=== PATIENT | female | born 1935 | race Caucasian/White ===

== ENCOUNTER 2017-05-07 18:57 | Inpatient (IN) | payer OTHER ==
[~2017-05-07] VITALS: Ht 152.4 cm; Wt 70.4 kg
[~2017-05-07 18:57] MED LIST: ADULT LOW DOSE81 M1 PO; DESYREL 150 MG150 MG PO; GLUCOPHAGE500 MG PO; HUMALOG100 UNIT/2 SQ; LANTUS100 UNIT/1 SQ; LEVOTHROID50 MCG PO; LOSARTAN-HCTZ1 EAC1 PO; NIFEDIAC CC60 MG PO; PRAVACHOL40 MG PO; SIMVASTATIN
[2017-05-07] MEDS ORDERED: LOSARTAN POTASS25 MG PO (19:25)
[2017-05-07] MEDS ORDERED: LEVOTHYROXINE50 MCG PO (19:25)
[2017-05-07] MEDS ORDERED: METFORMIN HCL1000 MG PO (19:25)
[2017-05-07] MEDS ORDERED: ADALAT CC 60 MG60 MG PO (19:25)
[2017-05-07] MEDS ORDERED: LO-DOSE ASPIRIN81 M1 PO (19:26)
[2017-05-07] MEDS ORDERED: CYANOCOBALAM1000 MCG PO (19:26)
[2017-05-07] MEDS ORDERED: VITAMIN D2000 UNI1 PO (19:26)
[2017-05-07] MEDS ORDERED: JANUVIA25 M1 PO (19:26)
[2017-05-07] MEDS ORDERED: LANTUS 10100 UNITS/ SC ×2 (19:27)
[2017-05-07 19:54] LABS: HEMATOCRIT 39.9 % (36.0-46.0); MCH 30.8 PG (29.0-34.0); MCHC 34.3 G/DL (30.0-36.0); MCV 89.7 FL (83-99); MEAN PLAT.VOLUME 11.7 uM^3 (9.5-12.4); PLATELET COUNT 246 K/uL (156-360); RBC DIS.WIDTH-CV 12.6 % (11.8-14.6); RBC DIS.WIDTH-SD 41.2 % (39-53); RED BLOOD COUNT 4.45 M/uL (3.80-5.20); WHITE BLOOD COUNT 10.6 K/uL (4.1-10.2)
[2017-05-07 19:55] LABS: CARBON DIOXIDE (BICARBONATE) 26.8 MEQ/L (20-31)
[2017-05-07 20:04] LABS: CHLORIDE 98 mEq/L (99-109); POTASSIUM 3.6 mEq/L (3.7-5.4); SODIUM 135 mEq/L (136-147)
[2017-05-07 20:07] LABS: ANION GAP 16 MEQ/L (2-14)
[2017-05-07 20:09] LABS: GFR ESTIMATE (CALCULATED) 42 mL/min/
[2017-05-07 20:10] LABS: UREA NITROGEN (BUN) 21 mg/dL (9-23)
[2017-05-07 20:24] LABS: GLUCOSE 526 mg/dL (70-99)
[2017-05-07] MEDS ORDERED: GLUCOPHAGE1000 MG PO (22:41)
[2017-05-07 22:42] LABS: POINT-OF-CARE METER ID UU13113702
[2017-05-07] MEDS ORDERED: PRAVACHOL40 MG PO (22:43)
[2017-05-07] MEDS ORDERED: COZAAR25 MG PO (22:45)
[2017-05-07] MEDS ORDERED: SYNTHROID50 MCG PO (22:45)
[2017-05-07] MEDS ORDERED: PROCARDIA XL60 MG PO (22:45)
[2017-05-08] VITALS (7 sets, daily range): BP systolic 116–180; BP diastolic 52–88
[2017-05-08 00:26] LABS: ADD MIUA? NO; BILIRUBIN NEGATIVE; BLOOD NEGATIVE; COLOR STRAW ((YELLOW)); GLUCOSE (STRIP) >=500; KETONES NEGATIVE; LEUKOCYTES NEGATIVE; NITRITE NEGATIVE; PROTEIN (STRIP) NEGATIVE; SPECIFIC GRAVITY 1.023 (1.000-1.030); UCUL ADDED? NO; UROBILINOGEN 0.2 MG/DL (0.2-1.0)
[2017-05-08 01:45] LABS: SODIUM 141 mEq/L (136-147)
[2017-05-08 01:48] LABS: ANION GAP 11 MEQ/L (2-14)
[2017-05-08 01:51] LABS: UREA NITROGEN (BUN) 16 mg/dL (9-23)
[2017-05-08 02:01] LABS: CHLORIDE 109 mEq/L (99-109); GFR ESTIMATE (CALCULATED) > 59 mL/min/; GLUCOSE 137 mg/dL (70-99)
[2017-05-08 07:39] LABS: Estimated Average Glucose 260 mg/dL (70-123); HEMOGLOBIN A1c (GLYCOHEMOGLOB) 10.7 % HGB (Below 5.7)
[2017-05-08 08:16] LABS: POINT-OF-CARE METER ID UU13113702
[2017-05-08 12:14] LABS: POINT-OF-CARE METER ID UU14188577
[2017-05-08 21:21] LABS: POINT-OF-CARE METER ID UU13113717
[2017-05-09] VITALS (7 sets, daily range): BP systolic 130–187; BP diastolic 62–92
[2017-05-09 06:51] LABS: HEMATOCRIT 40.8 % (36.0-46.0); MCH 30.3 PG (29.0-34.0); MCHC 33.8 G/DL (30.0-36.0); MCV 89.5 FL (83-99); MEAN PLAT.VOLUME 11.4 uM^3 (9.5-12.4); PLATELET COUNT 252 K/uL (156-360); RBC DIS.WIDTH-CV 12.7 % (11.8-14.6); RBC DIS.WIDTH-SD 41.7 % (39-53); RED BLOOD COUNT 4.56 M/uL (3.80-5.20); WHITE BLOOD COUNT 8.7 K/uL (4.1-10.2)
[2017-05-09 07:16] LABS: ALKALINE PHOSPHATASE 90 IU/L (3-129); ANION GAP 12 MEQ/L (2-14); CHLORIDE 104 MEQ/L (99-109); DIRECT BILIRUBIN 0.1 mg/dL (0.0-0.3); GFR ESTIMATE (CALCULATED) > 59 mL/min/; GLUCOSE 107 mg/dL (70-99); SAMPLE HEMOLYSIS CHECK 0; SAMPLE ICTERIC CHECK 0; SAMPLE LIPEMIA CHECK 0; SODIUM 139 MEQ/L (136-147); TOTAL BILIRUBIN 0.9 MG/DL (0.0-1.0); UREA NITROGEN (BUN) 11 mg/dL (9-23)
[2017-05-09 07:20] LABS: POTASSIUM 3.8 MEQ/L (3.7-5.4)
[2017-05-09 08:14] LABS: POINT-OF-CARE METER ID UU13113717
[2017-05-09 08:25] LABS: HDL CHOLESTEROL 30 MG/DL (Desirable>=50); NON-HDL CHOLESTEROL 184 mg/dL (Desirable<160); TOTAL CHOLESTEROL 214 mg/dL (Desirable<200); TRIGLYCERIDES 449 MG/DL (Normal: <150)
[2017-05-09 10:39] LABS: DIRECT BILIRUBIN 0.2 mg/dL (0.0-0.3)
[2017-05-09 10:41] LABS: TOTAL BILIRUBIN 1.1 MG/DL (0.0-1.0)
[2017-05-09 12:37] LABS: POINT-OF-CARE METER ID UU13113717
[2017-05-09 17:16] LABS: POINT-OF-CARE METER ID UU14174225
[2017-05-09 21:00] LABS: POINT-OF-CARE METER ID UU13113717
[2017-05-10 06:37] LABS: BASOPHIL COUNT 0.1 K/uL (0-0.1); EOSINOPHIL (%) 1.5 % (0-5); EOSINOPHIL COUNT 0.1 K/uL (0-0.3); IMMATURE GRANULOCYTE (%) 0.3 % (0.0-0.7); INSTRUMENT ABS NEUTROPHIL CT 2.7 K/uL; LYMPHOCYTE COUNT 3.1 K/uL (1.0-2.8); MCHC 34.1 G/DL (30.0-36.0); MCV 91.1 FL (83-99); MEAN PLAT.VOLUME 11.7 uM^3 (9.5-12.4); MONOCYTE COUNT 0.7 K/uL (0-0.8); NEUTROPHIL (%) 40.6 % (45-76); NEUTROPHIL COUNT 2.7 K/uL (1.8-6.4); PLATELET COUNT 219 K/uL (156-360); RBC DIS.WIDTH-CV 13.2 % (11.8-14.6); RED BLOOD COUNT 4.06 M/uL (3.80-5.20); WHITE BLOOD COUNT 6.7 K/uL (4.1-10.2)
[2017-05-10 06:58] VITALS: BP 139/65
[2017-05-10 07:01] LABS: ALKALINE PHOSPHATASE 73 IU/L (3-129); ANION GAP 7 MEQ/L (2-14); CHLORIDE 108 MEQ/L (99-109); GFR ESTIMATE (CALCULATED) 57 mL/min/; POTASSIUM 3.9 MEQ/L (3.7-5.4); SAMPLE HEMOLYSIS CHECK 0; SAMPLE ICTERIC CHECK 0; SAMPLE LIPEMIA CHECK 0; SODIUM 142 MEQ/L (136-147); TOTAL BILIRUBIN 0.9 MG/DL (0.0-1.0)
[2017-05-10 07:02] LABS: GLUCOSE 56 mg/dL (70-99); UREA NITROGEN (BUN) 21 mg/dL (9-23)
[2017-05-10 07:23] LABS: POINT-OF-CARE METER ID UU13113717
[2017-05-10 07:47] LABS: POINT-OF-CARE METER ID UU13113717
[2017-05-10 11:10] LABS: POINT-OF-CARE METER ID UU13113717
[2017-05-10 11:11] VITALS: BP 172/73
[2017-05-10 15:08] VITALS: BP 168/78
[2017-05-10 16:18] LABS: POINT-OF-CARE METER ID UU13113717
[2017-05-10 21:10] LABS: POINT-OF-CARE METER ID UU13113717
[2017-05-10 22:58] VITALS: BP 166/71
[2017-05-11 06:16] LABS: BASOPHIL COUNT 0.1 K/uL (0-0.1); EOSINOPHIL COUNT 0.1 K/uL (0-0.3); HEMATOCRIT 38.8 % (36.0-46.0); IMMATURE GRANULOCYTE (%) 0.4 % (0.0-0.7); INSTRUMENT ABS NEUTROPHIL CT 4.1 K/uL; MCH 30.8 PG (29.0-34.0); MCV 90.7 FL (83-99); MEAN PLAT.VOLUME 11.5 uM^3 (9.5-12.4); MONOCYTE (%) 8.5 % (3-12); MONOCYTE COUNT 0.7 K/uL (0-0.8); NEUTROPHIL (%) 51.6 % (45-76); NEUTROPHIL COUNT 4.1 K/uL (1.8-6.4); PLATELET COUNT 235 K/uL (156-360); RBC DIS.WIDTH-SD 42.5 % (39-53); RED BLOOD COUNT 4.28 M/uL (3.80-5.20)
[2017-05-11 06:40] LABS: ALKALINE PHOSPHATASE 81 IU/L (3-129); ANION GAP 10 MEQ/L (2-14); CHLORIDE 105 MEQ/L (99-109); GFR ESTIMATE (CALCULATED) > 59 mL/min/; GLUCOSE 220 mg/dL (70-99); POTASSIUM 4.3 MEQ/L (3.7-5.4); SAMPLE HEMOLYSIS CHECK 0; SAMPLE ICTERIC CHECK 0; SAMPLE LIPEMIA CHECK 0; SODIUM 139 MEQ/L (136-147); TOTAL BILIRUBIN 0.9 MG/DL (0.0-1.0); UREA NITROGEN (BUN) 23 mg/dL (9-23)
[2017-05-11 07:02] VITALS: BP 159/72
[2017-05-11 07:22] LABS: POINT-OF-CARE METER ID UU13113717
[2017-05-11 11:04] VITALS: BP 167/76
[2017-05-11 11:09] LABS: POINT-OF-CARE METER ID UU13113717
[2017-05-11 15:06] VITALS: BP 168/79
[2017-05-11 16:22] LABS: POINT-OF-CARE METER ID UU13113717
[2017-05-11 19:47] VITALS: BP 151/67
[2017-05-11 20:54] LABS: POINT-OF-CARE METER ID UU13113717
[2017-05-12 00:22] VITALS: BP 144/56
[2017-05-12 03:44] VITALS: BP 149/68
[2017-05-12 07:04] LABS: BASOPHIL COUNT 0.1 K/uL (0-0.1); EOSINOPHIL (%) 1.6 % (0-5); EOSINOPHIL COUNT 0.1 K/uL (0-0.3); HEMATOCRIT 37.4 % (36.0-46.0); IMMATURE GRANULOCYTE (%) 0.3 % (0.0-0.7); INSTRUMENT ABS NEUTROPHIL CT 2.7 K/uL; LYMPHOCYTE COUNT 2.9 K/uL (1.0-2.8); MCH 30.6 PG (29.0-34.0); MCHC 33.7 G/DL (30.0-36.0); MCV 90.8 FL (83-99); MEAN PLAT.VOLUME 11.6 uM^3 (9.5-12.4); MONOCYTE (%) 9.6 % (3-12); MONOCYTE COUNT 0.6 K/uL (0-0.8); NEUTROPHIL (%) 42.4 % (45-76); NEUTROPHIL COUNT 2.7 K/uL (1.8-6.4); PLATELET COUNT 214 K/uL (156-360); RBC DIS.WIDTH-SD 42.6 % (39-53); RED BLOOD COUNT 4.12 M/uL (3.80-5.20); WHITE BLOOD COUNT 6.3 K/uL (4.1-10.2)
[2017-05-12 07:28] LABS: POINT-OF-CARE METER ID UU13113717
[2017-05-12 07:42] LABS: ANION GAP 10 MEQ/L (2-14); CHLORIDE 106 MEQ/L (99-109); GFR ESTIMATE (CALCULATED) > 59 mL/min/; GLUCOSE 129 mg/dL (70-99); POTASSIUM 4.3 MEQ/L (3.7-5.4); SAMPLE HEMOLYSIS CHECK 0; SAMPLE ICTERIC CHECK 0; SAMPLE LIPEMIA CHECK 0; SODIUM 139 MEQ/L (136-147); UREA NITROGEN (BUN) 23 mg/dL (9-23)
[2017-05-12 07:43] VITALS: BP 169/74
[2017-05-12 16:28] LABS: POINT-OF-CARE METER ID UU14174225
[2017-05-12 19:27] VITALS: BP 139/64
[2017-05-12 20:40] LABS: POINT-OF-CARE METER ID UU14174225
[2017-05-13] VITALS (7 sets, daily range): BP systolic 143–166; BP diastolic 59–77
[2017-05-13 08:37] LABS: POINT-OF-CARE METER ID UU13113717
[2017-05-13 12:20] LABS: POINT-OF-CARE METER ID UU14174225
[2017-05-13 15:46] LABS: POINT-OF-CARE METER ID UU14174225
[2017-05-13 19:29] LABS: POINT-OF-CARE METER ID UU13113675
[2017-05-13 22:18] LABS: METH RESISTANT S AUREUS PCR NEGATIVE (NEGATIVE)
[2017-05-13 22:26] LABS: PROBE CHECK PASS; SPECIMEN PROCESSING CONTROL PASS
[2017-05-14] VITALS (8 sets, daily range): BP systolic 113–191; BP diastolic 52–75
[2017-05-14 06:39] LABS: POINT-OF-CARE METER ID UU14174217
[2017-05-14] MEDS ORDERED: LOSARTAN POTASS50 MG PO (11:00)
[2017-05-14] MEDS ORDERED: LORCET 5-325 M1 EACH PO (11:03)
[2017-05-14] MEDS ORDERED: PLAVIX75 MG PO (11:06)
[2017-05-14 12:25] LABS: POINT-OF-CARE METER ID UU14314083
== END 2017-05-14 12:45 | disposition home health service (06) | DRG 24 ==
LOC: EME 18:57 → EDOF 23:44 → 3EAST 23:44 → 5SOUTH 23:44 → ENRESERV 23:45 → 3EAST 05-08 01:39 → ENRESERV 05-08 12:05 → ENRESERVTM 05-08 13:17 → ENRESERV 05-08 13:19 → 5SOUTH 05-08 15:04 → ENRESERV 05-13 06:58 → 5SOUTH 05-13 16:57 → ENRESERV 05-13 19:28 → 4WEST 05-13 20:42 → ENRESERV 05-14 09:15 → CANRESERV 05-14 09:49 → 4WEST 05-14 12:45 → ENPENDDIS 05-14 13:00
PROVIDERS: Emergency Medicine; Family Medicine; Hospitalist; Surgery
PROC: 03CL3ZZ Extirpation of Matter from Left Internal Carotid Artery, Percutaneous Approach (ICD-10-PCS; principal; 2017-05-13)
DX: I63.232 Cerebral infarction due to unspecified occlusion or stenosis of left carotid arteries (principal); R56.9 Unspecified convulsions; R41.82 Altered mental status, unspecified; I65.21 Occlusion and stenosis of right carotid artery; E11.65 Type 2 diabetes mellitus with hyperglycemia; Q21.1 Atrial septal defect; I10 Essential (primary) hypertension; E78.5 Hyperlipidemia, unspecified; E03.9 Hypothyroidism, unspecified; Z60.2 Problems related to living alone; Z79.4 Long term (current) use of insulin; Z79.82 Long term (current) use of aspirin; Z82.49 Family history of ischemic heart disease and other diseases of the circulatory system
CPT/HCPCS: 70450; 70498; 70551; 78452; 80048; 80053; 80061; 81003; 82010; 82247; 82248; 82330; 82607; 82746; 82803; 82948; 83036; 84443; 85025; 85027; 87641; 93005; 93017; 93306; 93880; 95819; 99281; 99285; A9500; C1768; J0131; J0360; J0690; J1644; J1815; J2060; J2720; J2785; J2795; J3010; J7030; J7120

== ENCOUNTER 2017-06-01 18:50 | Emergency (ER) | payer OTHER ==
[~2017-06-01] VITALS: Ht 154.9 cm; Wt 66.1 kg
[~2017-06-01 18:50] MED LIST changes: +ADALAT CC 60 MG60 MG PO; +COZAAR25 MG PO; +CYANOCOBALAM1000 MCG PO; +GLUCOPHAGE1000 MG PO; +JANUVIA25 M1 PO; +LANTUS 10100 UNITS/ SC; +LEVOTHYROXINE50 MCG PO; +LO-DOSE ASPIRIN81 M1 PO; +LORCET 5-325 M1 EACH PO; +LOSARTAN POTASS25 MG PO; +LOSARTAN POTASS50 MG PO; +METFORMIN HCL1000 MG PO; +PLAVIX75 MG PO; +PROCARDIA XL60 MG PO; +SYNTHROID50 MCG PO; +VITAMIN D2000 UNI1 PO
[2017-06-01 19:32] LABS: HEMATOCRIT 37.9 % (36.0-46.0); HEMOGLOBIN 12.7 G/DL (11.9-15.5); MCH 30.5 PG (29.0-34.0); MCHC 33.5 G/DL (30.0-36.0); MCV 90.9 FL (83-99); RBC DIS.WIDTH-CV 12.6 % (11.8-14.6); RBC DIS.WIDTH-SD 41.7 % (39-53); RED BLOOD COUNT 4.17 M/uL (3.80-5.20); WHITE BLOOD COUNT 8.8 K/uL (4.1-10.2)
[2017-06-01 19:39] LABS: PLATELET COUNT 314 K/uL (156-360)
[2017-06-01 19:43] LABS: CHLORIDE 99 MEQ/L (99-109); POTASSIUM 4.2 MEQ/L (3.7-5.4); SODIUM 135 MEQ/L (136-147)
[2017-06-01 19:49] LABS: APPEARANCE CLEAR ((CLEAR)); BILIRUBIN NEGATIVE; BLOOD NEGATIVE; COLOR STRAW ((YELLOW)); GLUCOSE (STRIP) >=500; KETONES NEGATIVE; LEUKOCYTES NEGATIVE; NITRITE NEGATIVE; PROTEIN (STRIP) NEGATIVE; SPECIFIC GRAVITY 1.029 (1.000-1.030); UCUL ADDED? NO; UROBILINOGEN 0.2 MG/DL (0.2-1.0)
[2017-06-01 19:53] LABS: GFR ESTIMATE (CALCULATED) 57 mL/min/; UREA NITROGEN (BUN) 15 mg/dL (9-23)
[2017-06-01 19:56] LABS: GLUCOSE 592 mg/dL (70-99)
[2017-06-01 21:51] LABS: CARBON DIOXIDE (BICARBONATE) 21.9 MEQ/L (20-31)
[2017-06-01 23:20] VITALS: BP 131/68
== END 2017-06-01 23:28 | disposition home or self-care (01) ==
LOC: EME 18:50
DX: E11.65 Type 2 diabetes mellitus with hyperglycemia (principal); E87.0 Hyperosmolality and hypernatremia; I10 Essential (primary) hypertension; F03.90 Unspecified dementia, unspecified severity, without behavioral disturbance, psychotic disturbance, mood disturbance, and anxiety; E78.5 Hyperlipidemia, unspecified; E07.9 Disorder of thyroid, unspecified; Z79.4 Long term (current) use of insulin; Z79.82 Long term (current) use of aspirin; Z86.73 Personal history of transient ischemic attack (TIA), and cerebral infarction without residual deficits; Z90.49 Acquired absence of other specified parts of digestive tract
CPT/HCPCS: 80048; 81003; 82803; 82948; 83930; 85027; 93005; 99281; 99285; J7030

== ENCOUNTER 2017-09-22 10:08 | Inpatient (IN) | payer OTHER ==
[~2017-09-22] VITALS: Ht 154.9 cm; Wt 67.1 kg
[2017-09-22 10:48] LABS: BASOPHIL (%) 0.3 % (0-1); EOSINOPHIL (%) 0.1 % (0-5); HEMATOCRIT 40.3 % (36.0-46.0); HEMOGLOBIN 13.4 G/DL (11.9-15.5); IMMATURE GRANULOCYTE (%) 0.3 % (0.0-0.7); LYMPHOCYTE (%) 13.3 % (15-42); LYMPHOCYTE COUNT 1.2 K/uL (1.0-2.8); MCH 30.6 PG (29.0-34.0); MCHC 33.3 G/DL (30.0-36.0); MONOCYTE (%) 4.3 % (3-12); MONOCYTE COUNT 0.4 K/uL (0-0.8); NEUTROPHIL (%) 81.7 % (45-76); NEUTROPHIL COUNT 7.5 K/uL (1.8-6.4); PLATELET COUNT 324 K/uL (156-360); RBC DIS.WIDTH-CV 13.8 % (11.8-14.6); RBC DIS.WIDTH-SD 46.9 % (39-53); RED BLOOD COUNT 4.38 M/uL (3.80-5.20); WHITE BLOOD COUNT 9.1 K/uL (4.1-10.2)
[2017-09-22 10:56] LABS: CHLORIDE 108 mEq/L (99-109); POTASSIUM 4.5 mEq/L (3.7-5.4); SODIUM 143 mEq/L (136-147)
[2017-09-22 10:58] LABS: GLUCOSE 91 mg/dL (70-99)
[2017-09-22 11:02] LABS: CREATININE 0.8 mg/dL (0.6-1.3); GFR ESTIMATE (CALCULATED) > 59 mL/min/
[2017-09-22 11:03] LABS: UREA NITROGEN (BUN) 17 mg/dL (9-23)
[2017-09-22 11:09] LABS: TROP-I INTERPRETATION POSITIVE
[2017-09-22 11:10] LABS: TROPONIN-I 0.75 ng/mL (0.0-0.30)
[2017-09-22 12:49] LABS: PTT 27.9 SEC (25-37)
[2017-09-22 13:54] VITALS: BP 180/84
[2017-09-22 14:01] LABS: APPEARANCE CLEAR ((CLEAR)); BILIRUBIN NEGATIVE; BLOOD NEGATIVE; COLOR STRAW ((YELLOW)); GLUCOSE (STRIP) NEGATIVE; KETONES NEGATIVE; LEUKOCYTES NEGATIVE; NITRITE NEGATIVE; PROTEIN (STRIP) 100; SPECIFIC GRAVITY 1.009 (1.000-1.030); UROBILINOGEN 0.2 MG/DL (0.2-1.0)
[2017-09-22 14:06] LABS: BACTERIA RARE /HPF; EPITHELIAL CELLS RARE /HPF; MUCUS TRACE /LPF; RED BLOOD CELLS 0-5 /HPF (0-5); UCUL ADDED? NO; WHITE BLOOD CELLS 0-5 /HPF (0-5)
[2017-09-22 15:16] VITALS: BP 147/76
[2017-09-22] MEDS ORDERED: JANUVIA100 MG PO (16:36)
[2017-09-22] MEDS ORDERED: TRESIBA FL100 UNIT/1 SC (16:37)
[2017-09-22] MEDS ORDERED: VITAMIN D-32000 UNI2 PO (16:38)
[2017-09-22] MEDS ORDERED: CYANOCOBALAM1000 MCG PO (16:38)
[2017-09-22 17:44] LABS: TROP-I INTERPRETATION INDETERMINATE; TROPONIN-I 0.53 ng/mL (0.0-0.30)
[2017-09-22 19:34] LABS: INTER. NORMALIZED RATIO 1.1
[2017-09-22 19:37] LABS: PTT 100.5 SEC (25-37)
[2017-09-22 20:45] VITALS: BP 159/78
[2017-09-22 23:21] LABS: TROP-I INTERPRETATION POSITIVE
[2017-09-22 23:26] LABS: TROPONIN-I 0.66 ng/mL (0.0-0.30)
[2017-09-23 00:08] VITALS: BP 149/68
[2017-09-23 04:47] VITALS: BP 161/78
[2017-09-23 06:55] LABS: BASOPHIL (%) 0.8 % (0-1); BASOPHIL COUNT 0.1 K/uL (0-0.1); EOSINOPHIL COUNT 0.1 K/uL (0-0.3); HEMATOCRIT 35.5 % (36.0-46.0); HEMOGLOBIN 11.8 G/DL (11.9-15.5); IMMATURE GRANULOCYTE (%) 0.3 % (0.0-0.7); LYMPHOCYTE (%) 36.9 % (15-42); LYMPHOCYTE COUNT 2.9 K/uL (1.0-2.8); MCH 30.3 PG (29.0-34.0); MCHC 33.2 G/DL (30.0-36.0); MCV 91.3 FL (83-99); MONOCYTE (%) 9.7 % (3-12); MONOCYTE COUNT 0.8 K/uL (0-0.8); NEUTROPHIL (%) 51.3 % (45-76); NEUTROPHIL COUNT 4.1 K/uL (1.8-6.4); PLATELET COUNT 285 K/uL (156-360); RBC DIS.WIDTH-CV 14.1 % (11.8-14.6); RBC DIS.WIDTH-SD 47.5 % (39-53); RED BLOOD COUNT 3.89 M/uL (3.80-5.20); WHITE BLOOD COUNT 7.9 K/uL (4.1-10.2)
[2017-09-23 07:10] VITALS: BP 147/71
[2017-09-23 07:56] LABS: CHLORIDE 106 MEQ/L (99-109); CREATININE 0.9 MG/DL (0.6-1.3); GFR ESTIMATE (CALCULATED) > 59 mL/min/; POTASSIUM 4.2 MEQ/L (3.7-5.4); SODIUM 143 MEQ/L (136-147); UREA NITROGEN (BUN) 19 mg/dL (9-23)
[2017-09-23 07:57] LABS: GLUCOSE 49 mg/dL (70-99)
[2017-09-23 11:41] VITALS: BP 144/78
[2017-09-23 14:56] VITALS: BP 134/62
[2017-09-23 19:30] VITALS: BP 127/61
[2017-09-24 00:56] VITALS: BP 141/61
[2017-09-24 05:02] VITALS: BP 145/69
[2017-09-24 05:38] LABS: HEMOGLOBIN 12.1 G/DL (11.9-15.5); MCH 29.7 PG (29.0-34.0); MCHC 32.7 G/DL (30.0-36.0); MCV 90.9 FL (83-99); PLATELET COUNT 316 K/uL (156-360); RBC DIS.WIDTH-CV 13.7 % (11.8-14.6); RBC DIS.WIDTH-SD 45.9 % (39-53); RED BLOOD COUNT 4.07 M/uL (3.80-5.20); WHITE BLOOD COUNT 7.2 K/uL (4.1-10.2)
[2017-09-24 06:28] LABS: CHLORIDE 102 MEQ/L (99-109); CREATININE 0.9 MG/DL (0.6-1.3); GFR ESTIMATE (CALCULATED) > 59 mL/min/; POTASSIUM 3.6 MEQ/L (3.7-5.4); SODIUM 139 MEQ/L (136-147); UREA NITROGEN (BUN) 21 mg/dL (9-23)
[2017-09-24 06:29] LABS: GLUCOSE 148 mg/dL (70-99)
[2017-09-24 07:08] VITALS: BP 129/59
[2017-09-24] MEDS ORDERED: LOPRESSOR25 MG PO ×2 (09:15→16:04)
[2017-09-24] MEDS ORDERED: CLOPIDOGREL75 MG PO ×2 (09:15→16:04)
[2017-09-24 11:13] VITALS: BP 131/67
== END 2017-09-24 15:50 | disposition home health service (06) | DRG 281 ==
LOC: EME 10:08 → 4EAST 12:11 → EDOF 12:11 → ENRESERV 12:17 → 4EAST 13:29
PROVIDERS: Emergency Medicine; Hospitalist; Student in an Organized Health Care Education/Training Program
DX: I21.A1 Myocardial infarction type 2 (principal); I67.4 Hypertensive encephalopathy; I10 Essential (primary) hypertension; E78.5 Hyperlipidemia, unspecified; E03.9 Hypothyroidism, unspecified; F03.90 Unspecified dementia, unspecified severity, without behavioral disturbance, psychotic disturbance, mood disturbance, and anxiety; Z79.84 Long term (current) use of oral hypoglycemic drugs; Z79.82 Long term (current) use of aspirin; Z86.73 Personal history of transient ischemic attack (TIA), and cerebral infarction without residual deficits
CPT/HCPCS: 70450; 70551; 71045; 80048; 81003; 82948; 84484; 85025; 85027; 85610; 85730; 93005; 93306; 99281; 99285; J1644; J1815